=== PATIENT | male | born 1945 | race Two or more races ===

== ENCOUNTER 2017-03-24 05:32 | Inpatient (IN) | payer OTHER ==
[~2017-03-24] VITALS: Ht 175.3 cm; Wt 90.7 kg
[~2017-03-24 05:32] MED LIST: ALTACE1.25 MG; CATAFLAM50 MG PO; CEFADROXIL500 MG PO; CEFTIN500 MG PO; NABUMETONE750 MG PO; TIAZAC300 MG
[2017-03-27] MEDS ORDERED: OSEL75CA PO (09:59)
[2017-03-27] MEDS ORDERED: MEDROLPACK PO (09:59)
[2017-03-27] MEDS ORDERED: VENTOLIN HFA18 GM IH (09:59)
== END 2017-03-27 16:05 | disposition home or self-care (01) | DRG 192 ==
LOC: ER 05:32 → SEC-K 12:07 → MEDJ 03-26 20:28
PROC: 4A033R1 Measurement of Arterial Saturation, Peripheral, Percutaneous Approach (ICD-10-PCS; principal; 2017-03-24)
PROC: 3E0F7GC Introduction of Other Therapeutic Substance into Respiratory Tract, Via Natural or Artificial Opening (ICD-10-PCS; 2017-03-24)
DX: J44.1 Chronic obstructive pulmonary disease with (acute) exacerbation (principal); J11.1 Influenza due to unidentified influenza virus with other respiratory manifestations; R09.02 Hypoxemia

== ENCOUNTER 2017-03-28 07:21 | Inpatient (IN) | payer OTHER ==
[~2017-03-28] VITALS: Ht 175.3 cm; Wt 83.0 kg
[~2017-03-28 07:21] MED LIST changes: +MEDROLPACK PO; +OSEL75CA PO; +VENTOLIN HFA18 GM IH
== END 2017-04-03 18:44 | disposition home or self-care (01) | DRG 191 ==
LOC: ER 07:21 → SEC-K 11:27 → MEDI 11:27
PROC: 3E0F7GC Introduction of Other Therapeutic Substance into Respiratory Tract, Via Natural or Artificial Opening (ICD-10-PCS; principal; 2017-03-28)
PROC: 4A033R1 Measurement of Arterial Saturation, Peripheral, Percutaneous Approach (ICD-10-PCS; 2017-03-28)
PROC: BW24ZZZ Computerized Tomography (CT Scan) of Chest and Abdomen (ICD-10-PCS; 2017-03-29)
PROC: B246ZZZ Ultrasonography of Right and Left Heart (ICD-10-PCS; 2017-03-30)
DX: J44.1 Chronic obstructive pulmonary disease with (acute) exacerbation (principal); J98.11 Atelectasis; I50.20 Unspecified systolic (congestive) heart failure; R09.02 Hypoxemia; J11.1 Influenza due to unidentified influenza virus with other respiratory manifestations; I11.0 Hypertensive heart disease with heart failure

== ENCOUNTER 2017-04-24 13:37 | Emergency (ER) | payer OTHER ==
[~2017-04-24] VITALS: Ht 175.3 cm; Wt 95.7 kg
== END 2017-04-24 21:47 | disposition home or self-care (01) ==
LOC: ER 13:37
DX: J44.1 Chronic obstructive pulmonary disease with (acute) exacerbation (principal)

== ENCOUNTER 2018-02-16 22:22 | Emergency (ER) | payer OTHER ==
[~2018-02-16] VITALS: Ht 175.3 cm; Wt 99.8 kg
[2018-02-16] MEDS ORDERED: TIAZAC120 M1 PO (22:37)
== END 2018-02-16 23:33 | disposition home or self-care (01) ==
LOC: ER 22:22
DX: M71.521 Other bursitis, not elsewhere classified, right elbow (principal)

== ENCOUNTER 2018-07-17 17:57 | Emergency (ER) | payer OTHER ==
[~2018-07-17] VITALS: Ht 175.3 cm; Wt 101.2 kg
[~2018-07-17 17:57] MED LIST changes: +TIAZAC120 M1 PO
== END 2018-07-17 21:34 | disposition home or self-care (01) ==
LOC: ER 17:57
DX: I16.0 Hypertensive urgency (principal); I10 Essential (primary) hypertension; M70.71 Other bursitis of hip, right hip

== ENCOUNTER 2019-03-13 15:29 | Emergency (ER) | payer OTHER ==
[~2019-03-13] VITALS: Ht 175.3 cm; Wt 99.8 kg
[2019-03-13] MEDS ORDERED: ASPIR 8181 MG (16:24)
[2019-03-13] MEDS ORDERED: INDOCIN25 MG/5 ML (16:25)
[2019-03-13] MEDS ORDERED: ACCUPRIL5 MG (16:25)
== END 2019-03-13 21:59 | disposition home or self-care (01) ==
LOC: ER 15:29
DX: J44.1 Chronic obstructive pulmonary disease with (acute) exacerbation (principal); I10 Essential (primary) hypertension

== ENCOUNTER 2019-03-23 08:18 | Inpatient (IN) | payer OTHER ==
[~2019-03-23] VITALS: Ht 180.3 cm; Wt 99.8 kg
[~2019-03-23 08:18] MED LIST changes: +ACCUPRIL5 MG; +ASPIR 8181 MG; +INDOCIN25 MG/5 ML
--- NOTE | 2019-03-23 08:37 | NUR ---
SE RECIBE A PTE AMBULANDO ALERTA Y ORIENTADO X3 QUIEN REFIERE DIFICULTAD RESPIRATORIA. PTE INDICA QUE CRENSHAW ESTADO PRESENTANDO TOS PERSISTENTE. PTE REFIERE HX DE ENFISEMA. AL MOMENTO PTE SATURANDO AL 88%. SE NOTIFICA OXIMETRIA DE [place] A DR. MORRIS NELIDA QUIEN INDICA UBICAR A PTE EN UNIDAD DE ASMA.
--- NOTE | 2019-03-23 09:11 | NUR ---
PACIENTE ALERTA Y ORIENTADO POR RO ESFERAS. SE ORIENTA A PACIENTE SOBRE PROCEDIMIENTO Y TX, REFIERE ENTENDER. MS. ROBERSON EXTRAE MUESTRAS DE LABORATORIO CON MEDIDAS ASEPTICAS Y ADMINISTRA MEDICAMENTO JOSÉ ORDEN MEDICA.
--- NOTE | 2019-03-23 10:24 | NUR ---
G NOTIFICADOS A MR LEIGHA.
--- NOTE | 2019-03-23 14:49 | NUR ---
TERAPIAS RESPIRATORIAS NOTIFICADAS A TAM.
== END 2019-04-05 03:57 | disposition expired | DRG 207 ==
LOC: ER 08:18 → ICU 15:33 → MEDJ 15:33 → ICU 03-28 20:50
PROVIDERS: ADMIT Internal Medicine
PROC: 3E0F7GC Introduction of Other Therapeutic Substance into Respiratory Tract, Via Natural or Artificial Opening (ICD-10-PCS; 2019-03-23)
PROC: 4A033R1 Measurement of Arterial Saturation, Peripheral, Percutaneous Approach (ICD-10-PCS; 2019-03-23)
PROC: BB24ZZZ Computerized Tomography (CT Scan) of Bilateral Lungs (ICD-10-PCS; 2019-03-23)
PROC: B246ZZZ Ultrasonography of Right and Left Heart (ICD-10-PCS; 2019-03-24)
PROC: 4A12X4Z Monitoring of Cardiac Electrical Activity, External Approach (ICD-10-PCS; 2019-03-25)
PROC: BW28ZZZ Computerized Tomography (CT Scan) of Head (ICD-10-PCS; 2019-03-25)
PROC: BT43ZZZ Ultrasonography of Bilateral Kidneys (ICD-10-PCS; 2019-03-29)
PROC: 0DH67UZ Insertion of Feeding Device into Stomach, Via Natural or Artificial Opening (ICD-10-PCS; 2019-03-29)
PROC: 3E0G76Z Introduction of Nutritional Substance into Upper GI, Via Natural or Artificial Opening (ICD-10-PCS; 2019-03-29)
PROC: 5A1955Z Respiratory Ventilation, Greater than 96 Consecutive Hours (ICD-10-PCS; principal; 2019-03-30)
PROC: 0BH17EZ Insertion of Endotracheal Airway into Trachea, Via Natural or Artificial Opening (ICD-10-PCS; 2019-03-30)
PROC: 5A1D70Z Performance of Urinary Filtration, Intermittent, Less than 6 Hours Per Day (ICD-10-PCS; 2019-03-30)
PROC: 02HV33Z Insertion of Infusion Device into Superior Vena Cava, Percutaneous Approach (ICD-10-PCS; 2019-03-30)
PROC: 30233N1 Transfusion of Nonautologous Red Blood Cells into Peripheral Vein, Percutaneous Approach (ICD-10-PCS; 2019-04-02)
PROC: 3E0336Z Introduction of Nutritional Substance into Peripheral Vein, Percutaneous Approach (ICD-10-PCS; 2019-04-03)
DX: J44.1 Chronic obstructive pulmonary disease with (acute) exacerbation (principal); I21.4 Non-ST elevation (NSTEMI) myocardial infarction; J96.01 Acute respiratory failure with hypoxia; R65.21 Severe sepsis with septic shock; J98.11 Atelectasis; E87.2 Acidosis; L03.115 Cellulitis of right lower limb; J45.901 Unspecified asthma with (acute) exacerbation; F05 Delirium due to known physiological condition; E87.4 Mixed disorder of acid-base balance; N17.8 Other acute kidney failure; G93.1 Anoxic brain damage, not elsewhere classified; I50.30 Unspecified diastolic (congestive) heart failure; I13.0 Hypertensive heart and chronic kidney disease with heart failure and stage 1 through stage 4 chronic kidney disease, or unspecified chronic kidney disease; I46.9 Cardiac arrest, cause unspecified; Z87.891 Personal history of nicotine dependence; J44.0 Chronic obstructive pulmonary disease with (acute) lower respiratory infection; J11.1 Influenza due to unidentified influenza virus with other respiratory manifestations; I48.0 Paroxysmal atrial fibrillation; D69.49 Other primary thrombocytopenia; I71.4 Abdominal aortic aneurysm, without rupture; N18.9 Chronic kidney disease, unspecified; I70.0 Atherosclerosis of aorta; D63.1 Anemia in chronic kidney disease